=== PATIENT | female | born 1990 | race Caucasian/White ===

== ENCOUNTER 2020-01-13 19:01 | Inpatient (IN) | payer BC ==
[2020-01-13] MEDS ORDERED: Sodium Chloride 0.9% 10 ML Syringe FLUSH PRN (19:10)
[2020-01-13] MEDS ORDERED: Nalbuphine 10 MG/1 ML Vial IVPUSH PRN (19:10)
[2020-01-13] MEDS ORDERED: Ondansetron 4 MG/2 ML SDV IVPUSH PRN (19:10)
[2020-01-13] MEDS ORDERED: Oxytocin/Lactated Ringers 10 UNIT/1,000 ML BAG IV SCH ×2 (19:15)
[2020-01-13] MEDS ORDERED: diphenhydrAMINE 50 MG/ML SDV IVPUSH PRN (20:04)
[2020-01-13] MEDS ORDERED: fentaNYL 100 MCG/2 ML SDV EPIDUR PRN (20:04)
[2020-01-13] MEDS ORDERED: ePHEDrine 50 MG/ML SDV IVPUSH PRN (20:04)
[2020-01-13] MEDS ORDERED: Bupivacaine/fentaNYL/NS 100 ML Bag EPIDUR PRN (20:04)
--- NOTE | 2020-01-13 20:56 | PCM.PREANE ---
Preanesthetic Assessment - Procedure Proposed Procedure: Epidural - Anesthesia/Transfusion/Family Hx Anesthesia History: Prior Anesthesia Without Reaction Family History of Anesthesia Reaction: No Transfusion History: No Prior Transfusion(s) - Review of Systems General: No Symptoms Pulmonary: No Symptoms Cardiovascular: No Symptoms Gastrointestinal: Abdominal Pain (labor) Neurological: No Symptoms Other: Reports: None - Physical Assessment Height: 1.65 m Weight: 96.751 kg ASA Class: 2 Mental Status: Alert & Oriented x3 Airway Class: Mallampati = 1 Dentition: Reports: Normal Dentition Thyro-Mental Finger Breadths: 3 Mouth Opening Finger Breadths: 3 ROM/Head Extension: Full Lungs: Clear to Auscultation, Normal Respiratory Effort Cardiovascular: Regular Rate, Regular Rhythm - Lab Values: Laboratory Last Values SARS-CoV-2 RNA (ANGELICA) Negative (NEGATIVE) 01/13/20 19:25 - Allergies Allergies/Adverse Reactions: Allergies Allergy/AdvReac Type Severity Reaction Status Date / Time No Known Allergies Allergy Verified 01/13/20 20:02 - Anesthesia Plan Pre-Op Medication Ordered: None - Acknowledgements Anesthesia Type Planned: Epidural Pt an Appropriate Candidate for the Planned Anesthesia: Yes Alternatives and Risks of Anesthesia Discussed w Pt/Guardian: Yes Pt/Guardian Understands and Agrees with Anesthesia Plan: Yes PreAnesthesia Questionnaire Gastrointestinal History: Reports: GERD 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: - Infectious Disease History Infectious Disease History: Reports: Herpes - Past Surgical History HEENT Surgical History: Reports: Oral Surgery Female Surgical History: Reports: D&C - HOME MEDS Home Medications: Home Meds Acyclovir 400 mg PO TID 01/13/20 [History] Vits #93/Iron Fum/FA [ Formula Tablet] 1 tab PO DAILY 01/13/20 [History] - CURRENT (IN HOUSE) MEDS Current Meds: Current Medications Diphenhydramine HCl (Benadryl) 25 mg IVPUSH Q6H PRN PRN Reason: pruritis Ephedrine Sulfate (Ephedrine Sulfate) 5 mg IVPUSH ASDIRECTED PRN PRN Reason: Hypotension Fentanyl (Sublimaze) 100 mcg EPIDUR Q3H PRN PRN Reason: Pain Fentanyl/Bupivacaine HCl (Fentanyl/Bupivacaine/Ns 2 Mcg-0.125% 100 Ml) 100 ml EPIDUR ASDIRECTED PRN PRN Reason: Pain Oxytocin/Lactated Ringer's (Pitocin In Lr 10 Units/1,000 Ml) 10 unit in 1,000 mls @ 500 mls/hr IV .CONTINUOUS EDUAR Oxytocin/Lactated Ringer's (Pitocin In Lr 10 Units/1,000 Ml) 10 unit in 1,000 mls @ 12 mls/hr IV TITRATE EDUAR; Protocol Lactated Ringer's (Ringers, Lactated) 1,000 mls @ 100 mls/hr IV ASDIRECTED EDUAR Nalbuphine HCl (Nubain) 10 mg IVPUSH Q2H PRN PRN Reason: Pain Ondansetron HCl (Zofran) 4 mg IVPUSH Q4H PRN PRN Reason: Nausea/Vomiting Sodium Chloride (Saline Flush) 10 ml FLUSH ASDIRECTED PRN PRN Reason: Keep Vein Open
[2020-01-13] MEDS: Lactated Ringers 1,000 ML IV SCH (23:07)
[2020-01-14] MEDS: Lactated Ringers 1,000 ML IV SCH (01:27)
[2020-01-14] MEDS ORDERED: Lidocaine 1% 50 ML MDV ONE (01:42)
--- NOTE | 2020-01-14 03:22 | PCM.LDHP ---
L&D History of Present Illness - General Date of Service: 01/13/20 Admit Problem/Dx: Patient Status Order with Admit Dx/Problem 01/13/20 19:10 Patient Status [ADT] Routine Admission Diagnosis/Problem Admission Diagnosis/Problem Source of Information: Patient - History of Present Illness Introduction:: 29 year old at 40w2d here for induction of labor. PNC with myself without complications. 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: - Infectious Disease History Infectious Disease History: Reports: Herpes - Past Surgical History HEENT Surgical History: Reports: Oral Surgery Female Surgical History: Reports: D&C Social & Family History - Family History Family Medical History: No Pertinent Family History - Tobacco Use Tobacco Use Status *Q: Never Tobacco User Second Hand Smoke Exposure: No - Caffeine Use Caffeine Use: Reports: None - Recreational Drug Use Recreational Drug Use: No H&P Review of Systems - Review of Systems: Review Of Systems: See Below General: Reports: No Symptoms HEENT: Reports: No Symptoms Pulmonary: Reports: No Symptoms Cardiovascular: Reports: No Symptoms Gastrointestinal: Reports: No Symptoms Genitourinary: Reports: No Symptoms Musculoskeletal: Reports: No Symptoms Skin: Reports: No Symptoms Psychiatric: Reports: No Symptoms Neurological: Reports: No Symptoms Hematologic/Lymphatic: Reports: No Symptoms Immunologic: Reports: No Symptoms L&D Exam - Exam Exam: See Below - Vital Signs Vital Signs: Last Vital Signs Temp 36.8 C 01/13/20 19:10 Pulse 93 01/13/20 19:10 Resp 16 01/13/20 19:10 BP 121/91 H 01/13/20 19:10 Pulse Ox 99 01/13/20 19:10 Weight: 96.751 kg - OB Specific Contraction Intensity: Irritability Movement: Active Heart Tones: Present Heart Tones per Min: 145 Heart Rate (FHR) Variability: Moderate (6-25 bmp) Presentation: Vertex - Hurst Score Hurst Score Cervix Position: Posterior Hurst Score Consistency: Soft Hurst Score Effacement: >80% Hurst Score Dilation: 3-4 cm Hurst Score 's Station: -3 Hurst Score Total: 7 - Exam General: Alert, Oriented HEENT: PERRLA, Conjunctiva Clear, EACs Clear, EOMI, Hearing Intact, Mucosa Moist & [place], Nares Patent, Normal Nasal Septum, Posterior Pharynx Clear, TMs Clear Neck: Supple, Trachea Midline Lungs: Clear to Auscultation, Normal Respiratory Effort Cardiovascular: Regular Rate, Regular Rhythm GI/Abdominal Exam: Normal Bowel Sounds, Soft, Non-Tender, No Organomegaly, No Distention Back Exam: Normal Inspection, Full Range of Motion Extremities: Normal Inspection, Normal Range of Motion, Non-Tender, No Pedal Edema, Normal Capillary Refill Skin: Warm, Dry, Intact Neurological: Cranial Nerves Intact, Reflexes Equal Bilateral Psychiatric: Alert, Normal Affect, Normal Mood - Patient Data Lab Results Last 24 hrs: Laboratory Results - last 24 hr 01/13/20 01/13/20 01/13/20 Range/Units 19:25 19:29 23:44 WBC 9.60 (3.98-10.04) K/mm3 RBC 3.95 L (3.98-5.22) M/mm3 Hgb 11.7 (11.2-15.7) gm/dl Hct 35.2 (34.1-44.9) % MCV 89.1 (79.4-94.8) fl MCH 29.6 (25.6-32.2) pg MCHC 33.2 (32.2-35.5) g/dl RDW Std Deviation 47.5 H (36.4-46.3) fL Plt Count 200 (182-369) K/mm3 MPV 10.7 (9.4-12.3) fl Neut % (Auto) 67.7 (34.0-71.1) % Lymph % (Auto) 22.9 (19.3-51.7) % [place] % (Auto) 8.5 (4.7-12.5) % Eos % (Auto) 0.6 L (0.7-5.8) Baso % (Auto) 0.3 (0.1-1.2) % Neut # (Auto) 6.49 H (1.56-6.13) K/mm3 Lymph # (Auto) 2.20 (1.18-3.74) K/mm3 [place] # (Auto) 0.82 H (0.24-0.36) K/mm3 Eos # (Auto) 0.06 (0.04-0.36) K/mm3 Baso # (Auto) 0.03 (0.01-0.08) K/mm3 RPR Non-reactive (NONREACTIVE) SARS-CoV-2 RNA (ANGELICA) Negative (NEGATIVE) Result Diagrams: 01/13/20 23:44 Problem List Initiated/Reviewed/Updated: Yes Orders Last 24hrs: Active Orders 24 hr Category Date Time Status Patient Status [ADT] Routine ADT 01/13/20 19:10 Active Activity as Tolerated [RC] PFP Care 01/13/20 19:10 Active Communication Order [RC] ASDIRECTED Care 01/13/20 19:10 Active Communication Order [RC] ASDIRECTED Care 01/13/20 20:04 Active Cooling Warming Measures [RC] ASDIRECTED Care 01/13/20 20:04 Active Heart Tones [RC] ASDIRECTED Care 01/13/20 19:10 Active Non Stress Test [RC] PER UNIT ROUTINE Care 01/13/20 19:10 Active Notify Provider [RC] ASDIRECTED Care 01/13/20 20:04 Active Notify Provider [RC] ASDIRECTED Care 01/13/20 20:04 Active Notify Provider [RC] PFP Care 01/13/20 19:10 Active Notify Provider [RC] PRN Care 01/13/20 19:10 Active Oxygen Therapy [RC] ASDIRECTED Care 01/13/20 20:04 Active Peripheral IV Care [RC] . DIRECTED Care 01/13/20 19:10 Active Pulse Oximetry [RC] ASDIRECTED Care 01/13/20 20:04 Active Pump Management, Intrathecal [RC] ASDIRECTED Care 01/13/20 19:11 Active Urinary Catheter Assessment [RC] ASDIRECTED Care 01/13/20 19:10 Active Vital Signs [RC] PER UNIT ROUTINE Care 01/13/20 19:10 Active Vital Signs [RC] Q1H Care 01/13/20 20:04 Active Regular Diet [DIET] Diet 01/13/20 Breakfast Active Bupivacaine/fentaNYL/NS [fentaNYL/Bupivacaine/NS 2 MCG- Med 01/13/20 20:04 Active 0.125% 100 ML] 100 ml EPIDUR ASDIRECTED PRN Lactated Ringers [Ringers, Lactated] 1,000 ml Med 01/13/20 19:15 Active IV ASDIRECTED Nalbuphine [Nubain] Med 01/13/20 19:10 Active 10 mg IVPUSH Q2H PRN Ondansetron [Zofran] Med 01/13/20 19:10 Active 4 mg IVPUSH Q4H PRN Oxytocin/Lactated Ringers [Pitocin in LR 10 Units/1,000 Med 01/13/20 19:15 Active ML] 10 unit in 1,000 ml IV .CONTINUOUS Oxytocin/Lactated Ringers [Pitocin in LR 10 Units/1,000 Med 01/13/20 19:15 Active ML] 10 unit in 1,000 ml IV TITRATE Sodium Chloride 0.9% [Saline Flush] Med 01/13/20 19:10 Active 10 ml FLUSH ASDIRECTED PRN diphenhydrAMINE [Benadryl] Med 01/13/20 20:04 Active 25 mg IVPUSH Q6H PRN ePHEDrine [ePHEDrine sulfate] Med 01/13/20 20:04 Active 5 mg IVPUSH ASDIRECTED PRN fentaNYL [Sublimaze] Med 01/13/20 20:04 Active 100 mcg EPIDUR Q3H PRN Electronic Heart Tones Ext w TOCO [WOMSER] Oth 01/13/20 19:10 Ordered Routine Electronic Heart Tones Internal [WOMSER] Per Unit Oth 01/13/20 19:10 Ordered Routine Peripheral IV Insertion Adult [OM.PC] Routine Oth 01/13/20 19:10 Ordered Resuscitation Status Routine Resus Stat 01/13/20 19:10 Ordered Medication Orders Diphenhydramine HCl (Benadryl) 25 mg IVPUSH Q6H PRN PRN Reason: pruritis Ephedrine Sulfate (Ephedrine Sulfate) 5 mg IVPUSH ASDIRECTED PRN PRN Reason: Hypotension Fentanyl (Sublimaze) 100 mcg EPIDUR Q3H PRN PRN Reason: Pain Fentanyl/Bupivacaine HCl (Fentanyl/Bupivacaine/Ns 2 Mcg-0.125% 100 Ml) 100 ml EPIDUR ASDIRECTED PRN PRN Reason: Pain Oxytocin/Lactated Ringer's (Pitocin In Lr 10 Units/1,000 Ml) 10 unit in 1,000 mls @ 500 mls/hr IV .CONTINUOUS EDUAR Oxytocin/Lactated Ringer's (Pitocin In Lr 10 Units/1,000 Ml) 10 unit in 1,000 mls @ 12 mls/hr IV TITRATE EDUAR; Protocol Last Titration: 01/13/20 23:42 Dose: 4 munits/min, 24 mls/hr Documented by: Admin: 01/13/20 23:06 Dose: 2 munits/min, 12 mls/hr Documented by: FELA Lactated Ringer's (Ringers, Lactated) 1,000 mls @ 100 mls/hr IV ASDIRECTED EDUAR Last Infusion: 01/14/20 01:27 Dose: 100 mls/hr Documented by: Admin: 01/13/20 23:07 Dose: 100 mls/hr Documented by: FELA Nalbuphine HCl (Nubain) 10 mg IVPUSH Q2H PRN PRN Reason: Pain Last Admin: 01/14/20 01:25 Dose: 10 mg Documented by: FELA Ondansetron HCl (Zofran) 4 mg IVPUSH Q4H PRN PRN Reason: Nausea/Vomiting Sodium Chloride (Saline Flush) 10 ml FLUSH ASDIRECTED PRN PRN Reason: Keep Vein Open Assessment/Plan Comment:: Term induction. AROM clear fluid. Pitocin in 1-2hrs.
--- NOTE | 2020-01-14 03:32 | PCM.SN.2 ---
- Free Text/Narrative Note: Stage I - Patient presented for induction of labor. AROM clear fluid. Pitocin. Progressed to complete with overall reassuring heart tones. Stage II - of viable male. Weight 3330g. APGARS 8/9 at 249. Head delivered in controlled manner over intact perineum. Body and shoulders followed rapidly. To maternal abdomen. Positive cry. To maternal abdomen. Cord clamped and cut by FOB. Cord blood collected. Stage III - of intact placenta. 3vc. 2nd degree laceration repaired with 3-0 vicryl. Vaginal laceration vigorously bleeding. Repaired and rendered hemostatic with 3-0 vicryl. EBL 500.
[2020-01-14] MEDS ORDERED: Hydrocortisone Acetate 25 MG Supp RECTAL PRN (03:47)
[2020-01-14] MEDS ORDERED: Benzocaine/Menthol 20%-0.5% Spray 56 GM Canister TOP PRN (03:47)
[2020-01-14] MEDS ORDERED: Witch Hazel Medicated Pads 40/Jar TOP PRN (03:47)
[2020-01-14] MEDS ORDERED: Acetaminophen 325 MG Tab PO PRN (03:47)
[2020-01-14] MEDS ORDERED: Misoprostol 200 MCG Tab ONE (03:56)
[2020-01-14] MEDS ORDERED: Methylergonovine 0.2 MG/1 ML Amp ONE (04:11)
[2020-01-14] MEDS: Ibuprofen 600 MG Tab PO PRN ×2 (06:13→15:19)
== END 2020-01-15 10:30 | disposition home or self-care (01) | DRG 560 ==
LOC: JD.OB 19:01 → OBSVTOIN 01-14 02:49 → JD.OB 01-14 02:50
PROVIDERS: ADMIT Obstetrics & Gynecology; ATTEND Obstetrics & Gynecology
PROC: 10E0XZZ Delivery of Products of Conception, External Approach (ICD-10-PCS; principal; 2020-01-14)
PROC: 0KQM0ZZ Repair Perineum Muscle, Open Approach (ICD-10-PCS; 2020-01-14)
PROC: 3E0R3BZ Introduction of Anesthetic Agent into Spinal Canal, Percutaneous Approach (ICD-10-PCS; 2020-01-14)
DX: O99.62 Diseases of the digestive system complicating childbirth (principal); K21.9 Gastro-esophageal reflux disease without esophagitis; Z37.0 Single live birth; O70.1 Second degree perineal laceration during delivery; Z20.828 Contact with and (suspected) exposure to other viral communicable diseases; Z3A.40 40 weeks gestation of pregnancy
CPT/HCPCS: 36415; 59025; 59409; 85025; 86592; A9270-GY; J2001; J2210; J2300; J2590; J7120; U0002

== ENCOUNTER 2021-10-06 06:53 | Inpatient (IN) | payer OTHER ==
[2021-10-06] MEDS ORDERED: Sodium Chloride 0.9% 10 ML Syringe FLUSH PRN (07:30)
[2021-10-06] MEDS ORDERED: Lactated Ringers 1,000 ML IV SCH (07:30)
[2021-10-06] MEDS ORDERED: Oxytocin/Lactated Ringers 10 UNIT/1,000 ML BAG IV SCH ×2 (07:30)
[2021-10-06] MEDS ORDERED: Nalbuphine HCl 10 MG/ 1ML Amp IVPUSH PRN (07:30)
[2021-10-06] MEDS ORDERED: Sodium Chloride 0.9% 10 ML Syringe FLUSH SCH (09:00)
[2021-10-06] MEDS ORDERED: Lidocaine 1% 50 ML MDV INJECT STA (14:09)
[2021-10-06] MEDS ORDERED: Witch Hazel Medicated Pads 40/Jar TOP PRN (15:00)
[2021-10-06] MEDS ORDERED: Benzocaine/Menthol 20%-0.5% Spray 78 GM Cannister TOP PRN (15:00)
[2021-10-06] MEDS ORDERED: Ibuprofen 600 MG Tab PO PRN (15:00)
== END 2021-10-07 15:15 | disposition home or self-care (01) | DRG 806 ==
LOC: JD.OB 06:53 → OBSVTOIN 14:01 → JD.OB 14:02
PROVIDERS: ADMIT Obstetrics & Gynecology; ATTEND Obstetrics & Gynecology
PROC: 10E0XZZ Delivery of Products of Conception, External Approach (ICD-10-PCS; principal; 2021-10-06)
PROC: 0KQM0ZZ Repair Perineum Muscle, Open Approach (ICD-10-PCS; 2021-10-06)
PROC: 10907ZC Drainage of Amniotic Fluid, Therapeutic from Products of Conception, Via Natural or Artificial Opening (ICD-10-PCS; 2021-10-06)
PROC: 3E033VJ Introduction of Other Hormone into Peripheral Vein, Percutaneous Approach (ICD-10-PCS; 2021-10-06)
DX: O99.62 Diseases of the digestive system complicating childbirth (principal); O98.32 Other infections with a predominantly sexual mode of transmission complicating childbirth; Z37.0 Single live birth; O70.1 Second degree perineal laceration during delivery; K21.9 Gastro-esophageal reflux disease without esophagitis; A60.09 Herpesviral infection of other urogenital tract; Z3A.39 39 weeks gestation of pregnancy
CPT/HCPCS: 36415; 59025; 59409; 85025; 86592; 86850; 86900; 86901; J2001; J2590; J7120

== ENCOUNTER 2023-08-04 03:24 | Inpatient (IN) | payer OTHER ==
[2023-08-04] MEDS ORDERED: Sodium Chloride 0.9% 10 ML Syringe FLUSH PRN (03:55)
[2023-08-04] MEDS ORDERED: Nalbuphine 10 MG/ML Syringe IVPUSH PRN (03:55)
[2023-08-04] MEDS: Lactated Ringers 1,000 ML IV SCH (04:16)
[2023-08-04] MEDS: Ampicillin 2 GM in Sodium Chloride 0.9% 100 ML IV ONE (04:16)
[2023-08-04 04:53] LABS: BASOPHILS PERCENT AUTO 0.5 % (0.0-1.0); EOSINOPHILS ABSOLUTE AUTO 0.1 K/mm3 (0.0-0.4); EOSINOPHILS PERCENT AUTO 0.7 % (0.0-6.0); HEMATOCRIT 34.9 % (37.0-47.0); HEMOGLOBIN 11.7 gm/dl (12.0-16.0); IMMATURE GRAN ABSOLUTE AUTO 0.05 K/mm3 (0.00-0.05); IMMATURE GRAN PERCENT AUTO 0.6 % (0.0-0.4); LYMPHOCYTES ABSOLUTE AUTO 1.5 K/mm3 (1.0-4.8); LYMPHOCYTES PERCENT AUTO 16.7 % (24.0-44.0); MEAN CORPUSCULAR HEMOGLOBIN 29.5 pg (28.0-32.0); MEAN CORPUSCULAR HGB CONC 33.5 g/dl (32.0-36.0); MEAN CORPUSCULAR VOLUME 87.9 fl (83.0-99.0); MEAN PLATELET VOLUME 9.8 fl (9.4-12.3); MONOCYTES ABSOLUTE AUTO 0.9 K/mm3 (0.0-0.8); MONOCYTES PERCENT AUTO 10.1 % (0.0-8.0); NEUTROPHILS ABSOLUTE AUTO 6.2 K/mm3 (1.8-7.7); NEUTROPHILS PERCENT AUTO 71.4 % (41.0-71.0); PLATELET COUNT,PLT 209 K/mm3 (150-400); RED BLOOD CELL COUNT 3.97 M/mm3 (4.10-5.30)
[2023-08-04] MEDS: Ampicillin 1 GM in Sodium Chloride 0.9% 100 ML IV SCH (08:27)
[2023-08-04] MEDS: Sodium Chloride 0.9% 10 ML Syringe FLUSH SCH (09:15)
[2023-08-04] MEDS: Oxytocin/Lactated Ringers 30 UNIT/500 ML BAG IV SCH (09:53)
[2023-08-04] MEDS ORDERED: ePHEDrine 50 MG/ML SDV IVPUSH PRN (10:15)
[2023-08-04] MEDS ORDERED: diphenhydrAMINE 50 MG/ML SDV IVPUSH PRN (10:15)
[2023-08-04] MEDS ORDERED: fentaNYL 100 MCG/2 ML SDV EPIDUR PRN (10:15)
[2023-08-04] MEDS ORDERED: Bupivacaine/fentaNYL/NS 100 ML Bag EPIDUR PRN (10:15)
[2023-08-04] MEDS: Lidocaine 1% 50 ML MDV INJECT PRN (13:27)
[2023-08-04] MEDS ORDERED: Acetaminophen 325 MG Tab PO PRN (14:30)
[2023-08-04] MEDS: Benzocaine/Menthol 20%-0.5% Spray 78 GM Cannister TOP PRN (15:12)
[2023-08-04] MEDS: Witch Hazel Medicated Pads 40/Jar TOP PRN (15:12)
[2023-08-04] MEDS: Lidocaine 1% 50 ML MDV ONE (16:26)
[2023-08-04] MEDS: Ibuprofen 600 MG Tab PO SCH (16:26)
== END 2023-08-05 14:18 | disposition home or self-care (01) | DRG 807 ==
LOC: JD.OB 03:24 → OBSVTOIN 13:16 → JD.OB 13:17
PROVIDERS: ADMIT Obstetrics & Gynecology; ATTEND Obstetrics & Gynecology
PROC: 10E0XZZ Delivery of Products of Conception, External Approach (ICD-10-PCS; principal; 2023-08-04)
PROC: 0KQM0ZZ Repair Perineum Muscle, Open Approach (ICD-10-PCS; 2023-08-04)
PROC: 10907ZC Drainage of Amniotic Fluid, Therapeutic from Products of Conception, Via Natural or Artificial Opening (ICD-10-PCS; 2023-08-04)
DX: O99.824 Streptococcus B carrier state complicating childbirth (principal); Z37.0 Single live birth; O70.1 Second degree perineal laceration during delivery; Z3A.39 39 weeks gestation of pregnancy; Z98.890 Other specified postprocedural states
CPT/HCPCS: 36415; 59025; 59409; 85025; 86592; J0290; J2001; J3490; J7120; J7999